=== PATIENT | male | born 1950 | race African-American/Black ===

== ENCOUNTER 2021-09-06 06:53 | Day surgery (SDC) | payer OTHER ==
[~2021-09-06] VITALS: Ht 172.7 cm; Wt 93.4 kg
[2021-09-06] MEDS ORDERED: NS IRRIG SOLN 1000 ML IR ONE (12:00)
[2021-09-06] MEDS ORDERED: ARTICAINE HCL/EPINEPHRINE 4%/1:200,000 BIT 1.7 ML CARTRIDGE IJ ONE (12:00)
[2021-09-06] MEDS ORDERED: BENZOCAINE 20% GEL 32 GM BOTTLE MM ONE (12:00)
[2021-09-06] MEDS ORDERED: NS 100 ML BAG ONE (12:00)
[2021-09-06 12:11] VITALS: BP_SYST 145
== END 2021-09-06 10:50 | disposition home or self-care (01) ==
LOC: SDS 06:53 → SMU 06:55 → SDS 10:50
PROVIDERS: ATTEND Dentist General Practice
DX: M27.2 Inflammatory conditions of jaws (principal); M89.8X0 Other specified disorders of bone, multiple sites; E11.649 Type 2 diabetes mellitus with hypoglycemia without coma; M26.603 Bilateral temporomandibular joint disorder, unspecified; K05.223 Aggressive periodontitis, generalized, severe; K08.429 Partial loss of teeth due to periodontal diseases, unspecified class; I10 Essential (primary) hypertension; E78.5 Hyperlipidemia, unspecified; F17.210 Nicotine dependence, cigarettes, uncomplicated; K05.6 Periodontal disease, unspecified; Z86.73 Personal history of transient ischemic attack (TIA), and cerebral infarction without residual deficits; G89.4 Chronic pain syndrome; Z79.84 Long term (current) use of oral hypoglycemic drugs; Z79.899 Other long term (current) drug therapy; Z20.822 Contact with and (suspected) exposure to COVID-19
CPT/HCPCS: 21025; 21215; 21248; 36415; 41826; 70140; 87426; C1713

== ENCOUNTER 2021-09-13 07:35 | Day surgery (SDC) | payer OTHER ==
[~2021-09-13] VITALS: Ht 175.3 cm; Wt 93.4 kg
[2021-09-13] MEDS ORDERED: ARTICAINE HCL/EPINEPHRINE 4%/1:200,000 BIT 1.7 ML CARTRIDGE IJ ONE (10:00)
[2021-09-13] MEDS ORDERED: BENZOCAINE 20% GEL 32 GM BOTTLE MM ONE (10:00)
[2021-09-13] MEDS ORDERED: NS IRRIG SOLN 1000 ML IR ONE (10:00)
[2021-09-13 13:06] VITALS: BP_SYST 119
== END 2021-09-13 10:30 | disposition home or self-care (01) ==
LOC: SDS 07:35 → SMU 07:40 → SDS 10:30
PROVIDERS: ATTEND Dentist General Practice
DX: M27.2 Inflammatory conditions of jaws (principal); K05.6 Periodontal disease, unspecified; I10 Essential (primary) hypertension; E78.5 Hyperlipidemia, unspecified; F17.210 Nicotine dependence, cigarettes, uncomplicated; Z79.899 Other long term (current) drug therapy; Z20.822 Contact with and (suspected) exposure to COVID-19
CPT/HCPCS: 21025; 21215; 21248; 36415; 70140; 87426; C1713

== ENCOUNTER 2021-09-27 07:51 | Day surgery (SDC) | payer OTHER ==
[~2021-09-27] VITALS: Ht 172.7 cm; Wt 93.4 kg
[2021-09-27] MEDS ORDERED: NS 250 ML BAG IV ONE (10:00)
[2021-09-27] MEDS ORDERED: ARTICAINE HCL/EPINEPHRINE 4%/1:200,000 BIT 1.7 ML CARTRIDGE IJ ONE (10:00)
[2021-09-27] MEDS ORDERED: NS IRRIG SOLN 1000 ML IR ONE (10:00)
[2021-09-27] MEDS ORDERED: BENZOCAINE 20% GEL 32 GM BOTTLE MM ONE (10:00)
[2021-09-27 13:58] VITALS: BP_SYST 146
== END 2021-09-27 13:52 | disposition home or self-care (01) ==
LOC: SDS 07:51 → SMU 07:58 → SDS 13:52
PROVIDERS: ATTEND Dentist General Practice
DX: M27.2 Inflammatory conditions of jaws (principal); K05.6 Periodontal disease, unspecified; I10 Essential (primary) hypertension; E78.5 Hyperlipidemia, unspecified; F17.210 Nicotine dependence, cigarettes, uncomplicated; Q68.8 Other specified congenital musculoskeletal deformities; Z20.822 Contact with and (suspected) exposure to COVID-19; Z79.899 Other long term (current) drug therapy
CPT/HCPCS: 21026; 21210; 21248; 36415; 70140; 87426; C1713; J7050

== ENCOUNTER 2021-12-26 08:00 | Outpatient (CLI) | payer OTHER ==
[~2021-12-26] VITALS: Ht 172.7 cm; Wt 91.6 kg
== END 2021-12-26 15:00 | disposition home or self-care (01) ==
LOC: SLB 08:00 → EDSTATUS 12-27 09:00
PROVIDERS: ATTEND Dentist General Practice
DX: Z01.812 Encounter for preprocedural laboratory examination (principal); Z20.822 Contact with and (suspected) exposure to COVID-19; M27.8 Other specified diseases of jaws
CPT/HCPCS: 36415